=== PATIENT | female | born 1985 | race Hispanic/Latino ===

== ENCOUNTER 2018-07-20 09:26 | Observation (INO) | payer BC, MEDICAID ==
[~2018-07-20] VITALS: Ht 157.5 cm; Wt 102.1 kg
== END 2018-07-20 12:05 | disposition home or self-care (01) ==
LOC: EDH 09:26 → LDH 09:48
PROVIDERS: ADMIT Obstetrics & Gynecology; ATTEND Obstetrics & Gynecology
DX: O36.8120 Decreased fetal movements, second trimester, not applicable or unspecified (principal); O09.522 Supervision of elderly multigravida, second trimester; Z3A.25 25 weeks gestation of pregnancy
CPT/HCPCS: 99285; G0378 ×2